=== PATIENT | male | born 1990 | race Caucasian/White ===

== ENCOUNTER 2020-08-01 08:21 | Inpatient (IN) | payer OTHER ==
[2020-08-01] MEDS ORDERED: MAGNESIUM CITRATE 300 ML BOTTLE PO PRN (09:58)
[2020-08-01] MEDS ORDERED: LORazepam 1 MG TABLET PO PRN (09:58)
[2020-08-01] MEDS ORDERED: ACETAMINOPHEN 325 MG TABLET (FP) PO PRN (09:58)
[2020-08-01] MEDS ORDERED: METHOCARBAMOL 500 MG TABLET PO PRN (09:58)
[2020-08-01] MEDS ORDERED: methaDONE HCL 10 MG TABLET (FOR DETOX USE ONLY) PO ONE (09:58)
[2020-08-01] MEDS ORDERED: ONDANSETRON *ODT* 4 MG TABLET SL PRN (09:58)
[2020-08-01] MEDS ORDERED: BISMUTH SUBSALICYLATE 262 MG/15 ML BTL PO PRN (09:58)
[2020-08-01] MEDS ORDERED: MENTHOL/PHENOL 1 EACH UD MM PRN (09:58)
[2020-08-01 09:59] VITALS: BMI 17.3
[2020-08-01] MEDS: LORazepam 2 MG TABLET PO SCH ×3 (10:56→22:27)
[2020-08-01] MEDS: NICOTINE 14 MG/24 HOURS TOPICAL PATCH TD SCH (10:58)
[2020-08-01] MEDS: PRENATAL VITAMINS W/ FOLIC ACID TABLET (FP) PO SCH (11:05)
[2020-08-01] MEDS: hydrOXYzine PAMOATE 25 MG CAPSULE (FP) PO SCH ×4 (11:05→22:28)
[2020-08-01] MEDS: MAGNESIUM HYDROX 2400MG/30ML ORAL SUSPENSION 30 ML CUP PO PRN (13:06)
[2020-08-01] MEDS: cloNIDine HCL 0.1 MG TABLET PO PRN (13:06)
[2020-08-01 16:09] LABS: HEMATOCRIT 41.2 % (35.4-49); HEMOGLOBIN 13.6 GM/dL (11.7-16.9); MCH 27.2 pg (25.7-33.7); MEAN CELL VOLUME 82.6 fl (80-96); MEAN PLT VOLUME 7.1 fl (7.5-11.1); PLATELET COUNT 317 K/MM3 (134-434); RBC 4.98 M/mm3 (4.00-5.60); RDW 14.4 % (11.9-15.9); WHITE BLOOD COUNT 4.6 K/mm3 (4.0-10.0)
[2020-08-01 16:19] LABS: CALCIUM 9.2 mg/dL (8.5-10.1)
[2020-08-01 16:20] LABS: ALBUMIN 4.1 g/dl (3.4-5.0)
[2020-08-01 16:23] LABS: CREATININE 0.9 mg/dL (0.55-1.3)
[2020-08-01 16:24] LABS: TOT PROT 7.6 g/dl (6.4-8.2)
[2020-08-01] MEDS: IBUPROFEN 400 MG TABLET (FP) PO PRN (17:44)
[2020-08-01] MEDS: QUEtiapine FUMARATE 100 MG TABLET (FP) PO SCH (22:27)
[2020-08-01] MEDS: THIAMINE HCL 100 MG TABLET (FP) PO SCH (22:27)
[2020-08-01] MEDS: MELATONIN 5 MG TABLETS PO SCH (22:39)
[2020-08-02] MEDS: LORazepam 2 MG TABLET PO SCH ×4 (05:15→22:06)
[2020-08-02] MEDS: hydrOXYzine PAMOATE 25 MG CAPSULE (FP) PO SCH ×5 (05:15→22:10)
[2020-08-02] MEDS: IBUPROFEN 400 MG TABLET (FP) PO PRN ×2 (05:16→22:09)
[2020-08-02] MEDS ORDERED: methaDONE HCL 10 MG TABLET (FOR DETOX USE ONLY) ONE (09:20)
[2020-08-02] MEDS: PRENATAL VITAMINS W/ FOLIC ACID TABLET (FP) PO SCH (10:23)
[2020-08-02] MEDS: NICOTINE POLACRILEX 2 MG GUM BUC PRN ×3 (10:25→17:22)
[2020-08-02] MEDS: NICOTINE 14 MG/24 HOURS TOPICAL PATCH TD SCH (10:25)
[2020-08-02] MEDS: cloNIDine HCL 0.1 MG TABLET PO PRN ×2 (12:56→22:10)
[2020-08-02] MEDS: MAGNESIUM HYDROX 2400MG/30ML ORAL SUSPENSION 30 ML CUP PO PRN (13:57)
[2020-08-02] MEDS: MAG HYDROX/AL HYDROX/SIMETH 30 ML UNIT-DOSE CUP PO PRN (13:57)
[2020-08-02] MEDS: THIAMINE HCL 100 MG TABLET (FP) PO SCH (22:05)
[2020-08-02] MEDS: QUEtiapine FUMARATE 100 MG TABLET (FP) PO SCH (22:05)
[2020-08-02] MEDS: MELATONIN 5 MG TABLETS PO SCH (22:05)
[2020-08-03] MEDS: hydrOXYzine PAMOATE 25 MG CAPSULE (FP) PO SCH ×5 (05:17→22:26)
[2020-08-03] MEDS: LORazepam 1 MG TABLET PO SCH ×4 (05:17→22:01)
[2020-08-03] MEDS ORDERED: methaDONE HCL 10 MG TABLET (FOR DETOX USE ONLY) PO ONE (10:00)
[2020-08-03] MEDS: PRENATAL VITAMINS W/ FOLIC ACID TABLET (FP) PO SCH (10:04)
[2020-08-03] MEDS: ACETAMINOPHEN 325 MG TABLET (FP) PO PRN (10:07)
[2020-08-03] MEDS: NICOTINE 14 MG/24 HOURS TOPICAL PATCH TD SCH (10:09)
[2020-08-03] MEDS: NICOTINE POLACRILEX 2 MG GUM BUC PRN ×4 (10:09→20:04)
[2020-08-03] MEDS: IBUPROFEN 400 MG TABLET (FP) PO PRN ×2 (12:23→22:01)
[2020-08-03] MEDS: cloNIDine HCL 0.1 MG TABLET PO PRN ×2 (12:24→22:04)
[2020-08-03] MEDS: THIAMINE HCL 100 MG TABLET (FP) PO SCH (22:01)
[2020-08-03] MEDS: QUEtiapine FUMARATE 100 MG TABLET (FP) PO SCH (22:02)
[2020-08-03] MEDS: MELATONIN 5 MG TABLETS PO SCH (22:02)
[2020-08-04] MEDS ORDERED: LORazepam 0.5 MG TABLET PO PRN
[2020-08-04] MEDS: hydrOXYzine PAMOATE 25 MG CAPSULE (FP) PO SCH ×5 (05:27→22:00)
[2020-08-04] MEDS: LORazepam 0.5 MG TABLET PO SCH ×4 (05:27→21:59)
[2020-08-04] MEDS: NICOTINE POLACRILEX 2 MG GUM BUC PRN ×4 (05:29→17:31)
[2020-08-04] MEDS ORDERED: methaDONE HCL 10 MG TABLET (FOR DETOX USE ONLY) ONE (09:19)
[2020-08-04] MEDS: NICOTINE 14 MG/24 HOURS TOPICAL PATCH TD SCH (10:08)
[2020-08-04] MEDS: PRENATAL VITAMINS W/ FOLIC ACID TABLET (FP) PO SCH (10:08)
[2020-08-04] MEDS: ACETAMINOPHEN 325 MG TABLET (FP) PO PRN ×2 (11:40→22:01)
[2020-08-04] MEDS: IBUPROFEN 400 MG TABLET (FP) PO PRN (17:28)
[2020-08-04] MEDS: MAG HYDROX/AL HYDROX/SIMETH 30 ML UNIT-DOSE CUP PO PRN (17:49)
[2020-08-04] MEDS: THIAMINE HCL 100 MG TABLET (FP) PO SCH (21:59)
[2020-08-04] MEDS: QUEtiapine FUMARATE 100 MG TABLET (FP) PO SCH (22:01)
[2020-08-04] MEDS: MELATONIN 5 MG TABLETS PO SCH (22:04)
[2020-08-05] MEDS ORDERED: LORazepam 0.5 MG TABLET PO ONE (05:00)
[2020-08-05] MEDS: hydrOXYzine PAMOATE 25 MG CAPSULE (FP) PO SCH (05:15)
[2020-08-05 05:59] VITALS: BP 118/72; PULSE 72; TEMP 97.3
[2020-08-05] MEDS ORDERED: methaDONE HCL 10 MG TABLET (FOR DETOX USE ONLY) PO ONE (10:00)
== END 2020-08-05 09:08 | disposition home or self-care (01) | DRG 773 ==
LOC: YASAS 08:21 → Y6N 09:14
PROVIDERS: ADMIT Allergy & Immunology; ATTEND Allergy & Immunology
PROC: HZ2ZZZZ Detoxification Services for Substance Abuse Treatment (ICD-10-PCS; principal; 2020-08-01)
DX: F11.23 Opioid dependence with withdrawal (principal); F10.230 Alcohol dependence with withdrawal, uncomplicated; F13.20 Sedative, hypnotic or anxiolytic dependence, uncomplicated; F17.210 Nicotine dependence, cigarettes, uncomplicated; F14.10 Cocaine abuse, uncomplicated; F19.280 Other psychoactive substance dependence with psychoactive substance-induced anxiety disorder; F19.282 Other psychoactive substance dependence with psychoactive substance-induced sleep disorder; F32.9 Major depressive disorder, single episode, unspecified; F41.1 Generalized anxiety disorder; G40.89 Other seizures; Z62.810 Personal history of physical and sexual abuse in childhood
CPT/HCPCS: 36415; 71046-TC-FY; 80053; 82550; 83690; 84484; 85025; 85027; 86780; 93005; 93010; C9803; J0735; Q0162; U0003

== ENCOUNTER 2020-09-12 08:08 | Inpatient (IN) | payer OTHER ==
[2020-09-12 09:24] VITALS: BMI 25.8
[2020-09-12] MEDS ORDERED: ACETAMINOPHEN 325 MG TABLET (FP) PO PRN (09:43)
[2020-09-12] MEDS ORDERED: MAGNESIUM HYDROX 2400MG/30ML ORAL SUSPENSION 30 ML CUP PO PRN (09:43)
[2020-09-12] MEDS ORDERED: chlordiazePOXIDE HCL 25 MG CAPSULE PO PRN (09:43)
[2020-09-12] MEDS ORDERED: MAG HYDROX/AL HYDROX/SIMETH 30 ML UNIT-DOSE CUP PO PRN (09:43)
[2020-09-12] MEDS ORDERED: MAGNESIUM CITRATE 300 ML BOTTLE PO PRN (09:43)
[2020-09-12] MEDS ORDERED: cloNIDine HCL 0.1 MG TABLET PO PRN (09:43)
[2020-09-12] MEDS ORDERED: ONDANSETRON *ODT* 4 MG TABLET SL PRN (09:43)
[2020-09-12] MEDS ORDERED: MENTHOL/PHENOL 1 EACH UD MM PRN (09:43)
[2020-09-12] MEDS ORDERED: METHADONE HCL 10 MG TABLET (FOR DETOX USE ONLY) PO ONE (10:15)
[2020-09-12] MEDS ORDERED: NICOTINE 14 MG/24 HOURS TOPICAL PATCH TD ONE (10:57)
[2020-09-12] MEDS ORDERED: METHADONE HCL 10 MG TABLET (FOR DETOX USE ONLY) ONE (10:57)
[2020-09-12] MEDS ORDERED: chlordiazePOXIDE HCL 25 MG CAPSULE ONE (10:57)
[2020-09-12] MEDS ORDERED: hydrOXYzine PAMOATE 25 MG CAPSULE (FP) PO ONE (10:57)
[2020-09-12] MEDS: NICOTINE 14 MG/24 HOURS TOPICAL PATCH TD SCH (10:58)
[2020-09-12] MEDS: hydrOXYzine PAMOATE 25 MG CAPSULE (FP) PO SCH ×4 (10:58→22:08)
[2020-09-12] MEDS: chlordiazePOXIDE HCL 25 MG CAPSULE PO SCH ×3 (10:59→22:07)
[2020-09-12] MEDS: PRENATAL VITAMINS W/ FOLIC ACID TABLET (FP) PO SCH (12:01)
[2020-09-12 13:57] LABS: POTASSIUM 4.4 mmol/L (3.5-5.1)
[2020-09-12 14:01] LABS: ALBUMIN 3.5 g/dl (3.4-5.0); BLOOD UREA NITROGEN 9.1 mg/dL (7-18); CALCIUM 8.6 mg/dL (8.5-10.1)
[2020-09-12 14:04] LABS: CREATININE 0.8 mg/dL (0.55-1.3); HEMATOCRIT 37.9 % (35.4-49); HEMOGLOBIN 12.9 GM/dL (11.7-16.9); MCH 27.8 pg (25.7-33.7); MCHC 34.2 g/dl (32.0-35.9); MEAN CELL VOLUME 81.4 fl (80-96); PLATELET COUNT 328 K/MM3 (134-434); RBC 4.65 M/mm3 (4.00-5.60); RDW 13.6 % (11.9-15.9); WHITE BLOOD COUNT 3.5 K/mm3 (4.0-10.0)
[2020-09-12 14:06] LABS: BILIRUBIN,TOTAL 0.5 mg/dL (0.2-1); TOT PROT 6.6 g/dl (6.4-8.2)
[2020-09-12] MEDS: BISMUTH SUBSALICYLATE 524 MG/30 ML UD PO PRN (15:35)
[2020-09-12 15:47] LABS: HIV INTERPRETATION NEGATIVE (NEGATIVE)
[2020-09-12] MEDS: THIAMINE HCL 100 MG TABLET (FP) PO SCH (22:08)
[2020-09-12] MEDS: QUEtiapine FUMARATE 100 MG TABLET (FP) PO SCH (22:08)
[2020-09-12] MEDS: MELATONIN 5 MG TABLETS PO SCH (22:08)
[2020-09-12] MEDS: busPIRone HCL 5 MG TABLET PO SCH (22:09)
[2020-09-13] MEDS: chlordiazePOXIDE HCL 25 MG CAPSULE PO SCH ×4 (05:36→22:08)
[2020-09-13] MEDS: hydrOXYzine PAMOATE 25 MG CAPSULE (FP) PO SCH ×5 (05:37→22:07)
[2020-09-13] MEDS ORDERED: METHADONE HCL 10 MG TABLET (FOR DETOX USE ONLY) ONE (09:27)
[2020-09-13] MEDS ORDERED: METHADONE HCL 5 MG TABLET (FOR DETOX USE ONLY) ONE (09:28)
[2020-09-13] MEDS ORDERED: METHADONE (DETOX) 20 MG, METHADONE (DETOX) 5 MG PO ONE (10:00)
[2020-09-13] MEDS: busPIRone HCL 5 MG TABLET PO SCH ×2 (10:13→22:07)
[2020-09-13] MEDS: NICOTINE 14 MG/24 HOURS TOPICAL PATCH TD SCH (10:13)
[2020-09-13] MEDS: PRENATAL VITAMINS W/ FOLIC ACID TABLET (FP) PO SCH (10:14)
[2020-09-13] MEDS: IBUPROFEN 400 MG TABLET (FP) PO PRN ×2 (10:18→22:10)
[2020-09-13] MEDS: ACETAMINOPHEN 325 MG TABLET (FP) PO PRN (17:29)
[2020-09-13] MEDS: NICOTINE POLACRILEX 2 MG GUM BUC PRN ×2 (17:30→22:11)
[2020-09-13] MEDS: QUEtiapine FUMARATE 100 MG TABLET (FP) PO SCH (22:07)
[2020-09-13] MEDS: MELATONIN 5 MG TABLETS PO SCH (22:07)
[2020-09-13] MEDS: THIAMINE HCL 100 MG TABLET (FP) PO SCH (22:07)
[2020-09-13] MEDS: BISMUTH SUBSALICYLATE 524 MG/30 ML UD PO PRN (22:11)
[2020-09-14] MEDS: chlordiazePOXIDE HCL 25 MG CAPSULE PO SCH ×4 (05:33→22:02)
[2020-09-14] MEDS: ACETAMINOPHEN 325 MG TABLET (FP) PO PRN (05:34)
[2020-09-14] MEDS: hydrOXYzine PAMOATE 25 MG CAPSULE (FP) PO SCH ×5 (05:34→22:02)
[2020-09-14] MEDS: NICOTINE POLACRILEX 2 MG GUM BUC PRN ×4 (05:36→22:05)
[2020-09-14] MEDS ORDERED: FLU VACCINE (FLULAVAL) PF 60 MCG/0.5 ML SYRINGE 2020-2021 IM ONE (09:20)
[2020-09-14] MEDS ORDERED: METHADONE HCL 10 MG TABLET (FOR DETOX USE ONLY) PO ONE (10:00)
[2020-09-14] MEDS: busPIRone HCL 5 MG TABLET PO SCH ×2 (10:00→22:02)
[2020-09-14] MEDS: NICOTINE 14 MG/24 HOURS TOPICAL PATCH TD SCH (10:01)
[2020-09-14] MEDS: PRENATAL VITAMINS W/ FOLIC ACID TABLET (FP) PO SCH (10:01)
[2020-09-14] MEDS: METHOCARBAMOL 500 MG TABLET PO PRN ×2 (10:05→22:03)
[2020-09-14] MEDS: IBUPROFEN 400 MG TABLET (FP) PO PRN ×2 (10:05→18:26)
[2020-09-14] MEDS: BISMUTH SUBSALICYLATE 524 MG/30 ML UD PO PRN (18:14)
[2020-09-14] MEDS: THIAMINE HCL 100 MG TABLET (FP) PO SCH (22:02)
[2020-09-14] MEDS: QUEtiapine FUMARATE 100 MG TABLET (FP) PO SCH (22:02)
[2020-09-14] MEDS: MELATONIN 5 MG TABLETS PO SCH (22:02)
[2020-09-15] MEDS ORDERED: chlordiazePOXIDE HCL 10 MG CAPSULE PO PRN
[2020-09-15] MEDS: chlordiazePOXIDE HCL 10 MG CAPSULE PO SCH ×4 (05:47→22:03)
[2020-09-15] MEDS: hydrOXYzine PAMOATE 25 MG CAPSULE (FP) PO SCH ×3 (05:48→13:10)
[2020-09-15] MEDS: IBUPROFEN 400 MG TABLET (FP) PO PRN ×2 (05:48→22:05)
[2020-09-15] MEDS: NICOTINE POLACRILEX 2 MG GUM BUC PRN ×5 (05:51→19:31)
[2020-09-15] MEDS: BISMUTH SUBSALICYLATE 524 MG/30 ML UD PO PRN ×2 (06:02→20:36)
[2020-09-15] MEDS ORDERED: METHADONE HCL 10 MG TABLET (FOR DETOX USE ONLY) ONE (09:36)
[2020-09-15] MEDS ORDERED: METHADONE HCL 5 MG TABLET (FOR DETOX USE ONLY) ONE (09:36)
[2020-09-15] MEDS ORDERED: METHADONE (DETOX) 10 MG, METHADONE (DETOX) 5 MG PO ONE (10:00)
[2020-09-15] MEDS: busPIRone HCL 5 MG TABLET PO SCH ×2 (10:26→22:03)
[2020-09-15] MEDS: PRENATAL VITAMINS W/ FOLIC ACID TABLET (FP) PO SCH (10:26)
[2020-09-15] MEDS: ACETAMINOPHEN 325 MG TABLET (FP) PO PRN (10:27)
[2020-09-15] MEDS: METHOCARBAMOL 500 MG TABLET PO PRN (10:27)
[2020-09-15] MEDS: NICOTINE 14 MG/24 HOURS TOPICAL PATCH TD SCH (10:31)
[2020-09-15] MEDS ORDERED: hydrOXYzine PAMOATE 25 MG CAPSULE (FP) PO PRN (14:48)
[2020-09-15] MEDS: QUEtiapine FUMARATE 100 MG TABLET (FP) PO SCH (22:03)
[2020-09-15] MEDS: THIAMINE HCL 100 MG TABLET (FP) PO SCH (22:03)
[2020-09-15] MEDS: MELATONIN 5 MG TABLETS PO SCH (22:03)
[2020-09-16] MEDS ORDERED: chlordiazePOXIDE HCL 10 MG CAPSULE PO SCH (05:00)
[2020-09-16] MEDS ORDERED: METHADONE HCL 10 MG TABLET (FOR DETOX USE ONLY) PO ONE ×2 (06:00→10:00)
[2020-09-16 07:20] VITALS: BP 116/74; PULSE 74; TEMP 97.1
[2020-09-16] MEDS: PRENATAL VITAMINS W/ FOLIC ACID TABLET (FP) PO SCH (09:22)
[2020-09-16] MEDS: NICOTINE 14 MG/24 HOURS TOPICAL PATCH TD SCH (09:22)
[2020-09-16] MEDS: busPIRone HCL 5 MG TABLET PO SCH (09:22)
[2020-09-17] MEDS ORDERED: chlordiazePOXIDE HCL 10 MG CAPSULE PO ONE (05:00)
[2020-09-17] MEDS ORDERED: METHADONE HCL 5 MG TABLET (FOR DETOX USE ONLY) PO ONE (06:00)
== END 2020-09-16 08:27 | disposition home or self-care (01) | DRG 773 ==
LOC: YASAS 08:08 → Y3N 11:16
PROVIDERS: ADMIT Allergy & Immunology; ATTEND Allergy & Immunology
PROC: HZ2ZZZZ Detoxification Services for Substance Abuse Treatment (ICD-10-PCS; principal; 2020-09-12)
DX: F11.23 Opioid dependence with withdrawal (principal); F10.230 Alcohol dependence with withdrawal, uncomplicated; F13.20 Sedative, hypnotic or anxiolytic dependence, uncomplicated; F14.10 Cocaine abuse, uncomplicated; F17.210 Nicotine dependence, cigarettes, uncomplicated; F19.282 Other psychoactive substance dependence with psychoactive substance-induced sleep disorder; F19.280 Other psychoactive substance dependence with psychoactive substance-induced anxiety disorder; F41.1 Generalized anxiety disorder; F32.9 Major depressive disorder, single episode, unspecified; R56.9 Unspecified convulsions; Z62.810 Personal history of physical and sexual abuse in childhood; Z86.69 Personal history of other diseases of the nervous system and sense organs
CPT/HCPCS: 36415; 80053; 85027; 86780; 87389; C9803; G0008; J0735; Q2036; U0003

== ENCOUNTER 2020-12-31 09:08 | Inpatient (IN) | payer OTHER ==
[2020-12-31] MEDS ORDERED: MENTHOL/PHENOL 1 EACH UD MM PRN (09:53)
[2020-12-31] MEDS ORDERED: ACETAMINOPHEN 325 MG TABLET (FP) PO PRN ×2 (09:53)
[2020-12-31] MEDS ORDERED: cloNIDine HCL 0.1 MG TABLET PO PRN (09:53)
[2020-12-31] MEDS ORDERED: ONDANSETRON *ODT* 4 MG TABLET SL PRN (09:53)
[2020-12-31] MEDS ORDERED: MAGNESIUM CITRATE 300 ML BOTTLE PO PRN (09:53)
[2020-12-31] MEDS ORDERED: MAGNESIUM HYDROX 2400MG/30ML ORAL SUSPENSION 30 ML CUP PO PRN (09:53)
[2020-12-31 09:57] VITALS: BMI 25.2
[2020-12-31] MEDS ORDERED: METHADONE HCL 10 MG TABLET (FOR DETOX USE ONLY) PO ONE (10:30)
[2020-12-31] MEDS: diazePAM 5 MG TABLET PO SCH ×3 (11:47→22:10)
[2020-12-31] MEDS: METHOCARBAMOL 500 MG TABLET PO PRN (11:47)
[2020-12-31] MEDS: PRENATAL VITAMINS W/ FOLIC ACID TABLET (FP) PO SCH (11:49)
[2020-12-31] MEDS: NICOTINE 21 MG/24 HOURS TOPICAL PATCH TD SCH (11:49)
[2020-12-31] MEDS: hydrOXYzine PAMOATE 25 MG CAPSULE (FP) PO SCH ×4 (11:49→22:13)
[2020-12-31] MEDS: NICOTINE POLACRILEX 2 MG GUM BUC PRN ×2 (13:47→22:14)
[2020-12-31] MEDS: MAG HYDROX/AL HYDROX/SIMETH 30 ML UNIT-DOSE CUP PO PRN ×2 (13:48→22:08)
[2020-12-31] MEDS: GABAPENTIN 300 MG CAPSULE PO SCH ×2 (14:43→22:09)
[2020-12-31 14:53] LABS: HEMATOCRIT 42.3 % (35.4-49); HEMOGLOBIN 14.6 GM/dL (11.7-16.9); MCH 28.6 pg (25.7-33.7); MCHC 34.6 g/dl (32.0-35.9); MEAN CELL VOLUME 82.6 fl (80-96); MEAN PLT VOLUME 7.4 fl (7.5-11.1); PLATELET COUNT 363 K/MM3 (134-434); RBC 5.12 M/mm3 (4.00-5.60); RDW 14.5 % (11.9-15.9); WHITE BLOOD COUNT 9.1 K/mm3 (4.0-10.0)
[2020-12-31 16:00] LABS: BLOOD UREA NITROGEN 13.6 mg/dL (7-18)
[2020-12-31 16:01] LABS: ALBUMIN 4.6 g/dl (3.4-5.0); HIV INTERPRETATION NEGATIVE (NEGATIVE)
[2020-12-31 16:03] LABS: CALCIUM 9.6 mg/dL (8.5-10.1)
[2020-12-31 16:04] LABS: CREATININE 0.9 mg/dL (0.55-1.3)
[2020-12-31 16:05] LABS: BILIRUBIN,TOTAL 0.8 mg/dL (0.2-1); TOT PROT 8.1 g/dl (6.4-8.2)
[2020-12-31] MEDS: NYSTATIN 500,000 UNITS/5 ML SUSPENSION PO SCH ×2 (19:35→23:00)
[2020-12-31] MEDS: QUEtiapine FUMARATE 100 MG TABLET (FP) PO SCH (22:09)
[2020-12-31] MEDS: THIAMINE HCL 100 MG TABLET (FP) PO SCH (22:09)
[2020-12-31] MEDS: MELATONIN 5 MG TABLETS PO SCH (22:13)
[2020-12-31] MEDS: HYDROCORTISONE 1% TOPICAL OINT 30 GM TUBE TP PRN (22:14)
[2020-12-31] MEDS: IBUPROFEN 400 MG TABLET (FP) PO PRN (22:16)
[2021-01-01] MEDS: hydrOXYzine PAMOATE 25 MG CAPSULE (FP) PO SCH ×5 (05:08→22:04)
[2021-01-01] MEDS: GABAPENTIN 300 MG CAPSULE PO SCH ×3 (05:08→22:06)
[2021-01-01] MEDS: NYSTATIN 500,000 UNITS/5 ML SUSPENSION PO SCH ×4 (05:08→23:00)
[2021-01-01] MEDS: diazePAM 5 MG TABLET PO SCH ×4 (05:09→22:06)
[2021-01-01] MEDS: IBUPROFEN 400 MG TABLET (FP) PO PRN (05:10)
[2021-01-01] MEDS: NICOTINE POLACRILEX 2 MG GUM BUC PRN ×4 (05:11→17:19)
[2021-01-01] MEDS ORDERED: METHADONE HCL 5 MG TABLET (FOR DETOX USE ONLY) ONE (09:29)
[2021-01-01] MEDS ORDERED: METHADONE HCL 10 MG TABLET (FOR DETOX USE ONLY) ONE (09:30)
[2021-01-01] MEDS ORDERED: METHADONE (DETOX) 20 MG, METHADONE (DETOX) 5 MG PO ONE (10:00)
[2021-01-01] MEDS: PRENATAL VITAMINS W/ FOLIC ACID TABLET (FP) PO SCH (10:08)
[2021-01-01] MEDS: NICOTINE 21 MG/24 HOURS TOPICAL PATCH TD SCH (10:08)
[2021-01-01] MEDS: HYDROCORTISONE 1% TOPICAL OINT 30 GM TUBE TP PRN (14:23)
[2021-01-01] MEDS: QUEtiapine FUMARATE 100 MG TABLET (FP) PO SCH (22:04)
[2021-01-01] MEDS: THIAMINE HCL 100 MG TABLET (FP) PO SCH (22:04)
[2021-01-01] MEDS: MELATONIN 5 MG TABLETS PO SCH (22:07)
[2021-01-02] MEDS: IBUPROFEN 400 MG TABLET (FP) PO PRN ×2 (05:14→22:07)
[2021-01-02] MEDS: NYSTATIN 500,000 UNITS/5 ML SUSPENSION PO SCH ×4 (05:15→23:00)
[2021-01-02] MEDS: GABAPENTIN 300 MG CAPSULE PO SCH ×3 (05:16→22:03)
[2021-01-02] MEDS: diazePAM 5 MG TABLET PO SCH ×3 (05:16→22:03)
[2021-01-02] MEDS: hydrOXYzine PAMOATE 25 MG CAPSULE (FP) PO SCH ×5 (05:16→22:07)
[2021-01-02] MEDS ORDERED: METHADONE HCL 10 MG TABLET (FOR DETOX USE ONLY) PO ONE (10:00)
[2021-01-02] MEDS: PRENATAL VITAMINS W/ FOLIC ACID TABLET (FP) PO SCH (10:05)
[2021-01-02] MEDS: NICOTINE 21 MG/24 HOURS TOPICAL PATCH TD SCH (10:07)
[2021-01-02] MEDS: METHOCARBAMOL 500 MG TABLET PO PRN (10:10)
[2021-01-02] MEDS: diazePAM 5 MG TABLET PO PRN ×2 (10:10→17:57)
[2021-01-02] MEDS: NICOTINE POLACRILEX 2 MG GUM BUC PRN ×3 (10:13→22:05)
[2021-01-02] MEDS: HYDROCORTISONE 1% TOPICAL OINT 30 GM TUBE TP PRN (22:02)
[2021-01-02] MEDS: QUEtiapine FUMARATE 100 MG TABLET (FP) PO SCH (22:03)
[2021-01-02] MEDS: THIAMINE HCL 100 MG TABLET (FP) PO SCH (22:03)
[2021-01-02] MEDS: MELATONIN 5 MG TABLETS PO SCH (22:08)
[2021-01-03] MEDS: diazePAM 5 MG TABLET PO SCH ×2 (05:26→17:38)
[2021-01-03] MEDS: GABAPENTIN 300 MG CAPSULE PO SCH ×3 (05:27→22:05)
[2021-01-03] MEDS: hydrOXYzine PAMOATE 25 MG CAPSULE (FP) PO SCH ×5 (05:27→22:05)
[2021-01-03] MEDS: IBUPROFEN 400 MG TABLET (FP) PO PRN (05:28)
[2021-01-03] MEDS: NYSTATIN 500,000 UNITS/5 ML SUSPENSION PO SCH ×4 (05:37→23:03)
[2021-01-03] MEDS: BISMUTH SUBSALICYLATE 524 MG/30 ML PO PRN ×2 (05:37→22:08)
[2021-01-03] MEDS: NICOTINE POLACRILEX 2 MG GUM BUC PRN ×3 (05:39→22:08)
[2021-01-03] MEDS ORDERED: METHADONE HCL 5 MG TABLET (FOR DETOX USE ONLY) ONE (08:55)
[2021-01-03] MEDS ORDERED: METHADONE HCL 10 MG TABLET (FOR DETOX USE ONLY) ONE (08:56)
[2021-01-03] MEDS ORDERED: METHADONE (DETOX) 10 MG, METHADONE (DETOX) 5 MG PO ONE (10:00)
[2021-01-03] MEDS: PRENATAL VITAMINS W/ FOLIC ACID TABLET (FP) PO SCH (10:07)
[2021-01-03] MEDS: NICOTINE 21 MG/24 HOURS TOPICAL PATCH TD SCH (10:08)
[2021-01-03] MEDS: QUEtiapine FUMARATE 100 MG TABLET (FP) PO SCH (22:05)
[2021-01-03] MEDS: THIAMINE HCL 100 MG TABLET (FP) PO SCH (22:05)
[2021-01-03] MEDS: MELATONIN 5 MG TABLETS PO SCH (22:05)
[2021-01-04] MEDS: IBUPROFEN 600 MG TABLET (FP) PO PRN ×2 (04:57→17:30)
[2021-01-04] MEDS: NYSTATIN 500,000 UNITS/5 ML SUSPENSION PO SCH ×3 (05:35→18:19)
[2021-01-04] MEDS: GABAPENTIN 300 MG CAPSULE PO SCH ×3 (05:35→22:06)
[2021-01-04] MEDS: hydrOXYzine PAMOATE 25 MG CAPSULE (FP) PO SCH ×5 (05:36→22:06)
[2021-01-04] MEDS ORDERED: diazePAM 5 MG TABLET PO ONE (06:00)
[2021-01-04] MEDS ORDERED: METHADONE HCL 10 MG TABLET (FOR DETOX USE ONLY) PO ONE ×2 (10:00)
[2021-01-04] MEDS: PRENATAL VITAMINS W/ FOLIC ACID TABLET (FP) PO SCH (10:03)
[2021-01-04] MEDS: NICOTINE 21 MG/24 HOURS TOPICAL PATCH TD SCH (10:04)
[2021-01-04] MEDS: NICOTINE POLACRILEX 2 MG GUM BUC PRN ×2 (10:05→17:32)
[2021-01-04] MEDS: BISMUTH SUBSALICYLATE 524 MG/30 ML PO PRN (17:32)
[2021-01-04] MEDS: QUEtiapine FUMARATE 100 MG TABLET (FP) PO SCH (22:05)
[2021-01-04] MEDS: THIAMINE HCL 100 MG TABLET (FP) PO SCH (22:05)
[2021-01-04] MEDS: MELATONIN 5 MG TABLETS PO SCH (22:06)
[2021-01-05] MEDS: NYSTATIN 500,000 UNITS/5 ML SUSPENSION PO SCH ×4 (00:33→17:30)
[2021-01-05] MEDS: GABAPENTIN 300 MG CAPSULE PO SCH ×2 (05:13→13:51)
[2021-01-05] MEDS: hydrOXYzine PAMOATE 25 MG CAPSULE (FP) PO SCH ×4 (05:13→17:29)
[2021-01-05] MEDS: IBUPROFEN 600 MG TABLET (FP) PO PRN (05:15)
[2021-01-05] MEDS: NICOTINE POLACRILEX 2 MG GUM BUC PRN ×4 (05:26→17:27)
[2021-01-05] MEDS ORDERED: METHADONE HCL 5 MG TABLET (FOR DETOX USE ONLY) PO ONE (06:00)
[2021-01-05] MEDS: PRENATAL VITAMINS W/ FOLIC ACID TABLET (FP) PO SCH (10:07)
[2021-01-05] MEDS: NICOTINE 21 MG/24 HOURS TOPICAL PATCH TD SCH (10:07)
[2021-01-05] MEDS: METHOCARBAMOL 500 MG TABLET PO PRN (13:53)
[2021-01-05] MEDS: MAG HYDROX/AL HYDROX/SIMETH 30 ML UNIT-DOSE CUP PO PRN (13:53)
[2021-01-05 17:05] VITALS: BP 138/84; PULSE 95; TEMP 98
== END 2021-01-05 17:57 | disposition other institution (70) | DRG 773 ==
LOC: YASAS 09:08 → Y6N 10:32
PROVIDERS: ADMIT Allergy & Immunology; ATTEND Allergy & Immunology
PROC: HZ2ZZZZ Detoxification Services for Substance Abuse Treatment (ICD-10-PCS; principal; 2020-12-31)
DX: F10.230 Alcohol dependence with withdrawal, uncomplicated (principal); F11.23 Opioid dependence with withdrawal; F13.20 Sedative, hypnotic or anxiolytic dependence, uncomplicated; F14.20 Cocaine dependence, uncomplicated; F17.210 Nicotine dependence, cigarettes, uncomplicated; F19.282 Other psychoactive substance dependence with psychoactive substance-induced sleep disorder; F19.280 Other psychoactive substance dependence with psychoactive substance-induced anxiety disorder; F19.24 Other psychoactive substance dependence with psychoactive substance-induced mood disorder; F32.9 Major depressive disorder, single episode, unspecified; G40.89 Other seizures; B37.0 Candidal stomatitis; Z62.810 Personal history of physical and sexual abuse in childhood; R63.4 Abnormal weight loss; Z68.25 Body mass index [BMI] 25.0-25.9, adult; Z86.16 Personal history of COVID-19; Z98.890 Other specified postprocedural states
CPT/HCPCS: 36415; 80053; 85027; 86780; 87389; 93005; 93010; C9803; J0735; U0003; U0005

== ENCOUNTER 2021-01-05 18:30 | Inpatient (IN) | payer OTHER ==
[2021-01-05] MEDS ORDERED: guaiFENesin 200 MG/10 ML 10 ML UNIT-DOSE CUPS PO PRN (18:38)
[2021-01-05] MEDS ORDERED: MAGNESIUM CITRATE 300 ML BOTTLE PO PRN (18:38)
[2021-01-05] MEDS ORDERED: MENTHOL/PHENOL 1 EACH UD MM PRN (18:38)
[2021-01-05] MEDS ORDERED: MAGNESIUM HYDROX 2400MG/30ML ORAL SUSPENSION 30 ML CUP PO PRN (18:38)
[2021-01-05] MEDS ORDERED: P-EPHED 60MG/TRIPROLIDI 2.5MG TABLET PO PRN (18:38)
[2021-01-05] MEDS: MELATONIN 5 MG TABLETS PO SCH (21:10)
[2021-01-05] MEDS: GABAPENTIN 300 MG CAPSULE PO SCH (21:10)
[2021-01-05] MEDS: QUEtiapine FUMARATE 100 MG TABLET (FP) PO SCH (21:10)
[2021-01-05] MEDS: THIAMINE HCL 100 MG TABLET (FP) PO SCH (21:10)
[2021-01-05] MEDS: hydrOXYzine PAMOATE 25 MG CAPSULE (FP) PO SCH (21:10)
[2021-01-05] MEDS: IBUPROFEN 400 MG TABLET (FP) PO PRN (21:12)
[2021-01-05] MEDS: NICOTINE POLACRILEX 2 MG GUM BUC PRN (21:13)
[2021-01-05] MEDS: NYSTATIN 500,000 UNITS/5 ML SUSPENSION PO SCH (23:48)
[2021-01-06] MEDS: IBUPROFEN 400 MG TABLET (FP) PO PRN ×2 (06:23→17:19)
[2021-01-06] MEDS: GABAPENTIN 300 MG CAPSULE PO SCH (06:23)
[2021-01-06] MEDS: MAG HYDROX/AL HYDROX/SIMETH 30 ML UNIT-DOSE CUP PO PRN (06:23)
[2021-01-06] MEDS: hydrOXYzine PAMOATE 25 MG CAPSULE (FP) PO SCH ×2 (06:23→09:41)
[2021-01-06] MEDS: NYSTATIN 500,000 UNITS/5 ML SUSPENSION PO SCH ×3 (06:24→17:26)
[2021-01-06] MEDS: NICOTINE POLACRILEX 2 MG GUM BUC PRN ×5 (06:25→21:13)
[2021-01-06] MEDS: PRENATAL VITAMINS W/ FOLIC ACID TABLET (FP) PO SCH (09:40)
[2021-01-06] MEDS: NICOTINE 21 MG/24 HOURS TOPICAL PATCH TD SCH (09:42)
[2021-01-06] MEDS: PANTOPRAZOLE 40 MG TABLET PO SCH (14:02)
[2021-01-06] MEDS: GABAPENTIN 400 MG CAPSULE PO SCH ×2 (14:21→21:12)
[2021-01-06] MEDS: hydrOXYzine PAMOATE 50 MG CAPSULE (FP) PO SCH ×3 (14:22→21:12)
[2021-01-06] MEDS: MELATONIN 5 MG TABLETS PO SCH (21:12)
[2021-01-06] MEDS: THIAMINE HCL 100 MG TABLET (FP) PO SCH (21:12)
[2021-01-06] MEDS: QUEtiapine FUMARATE 100 MG TABLET (FP) PO SCH (21:12)
[2021-01-07] MEDS: NYSTATIN 500,000 UNITS/5 ML SUSPENSION PO SCH ×5 (00:17→23:00)
[2021-01-07] MEDS: hydrOXYzine PAMOATE 50 MG CAPSULE (FP) PO SCH ×5 (06:26→21:13)
[2021-01-07] MEDS: GABAPENTIN 400 MG CAPSULE PO SCH ×3 (06:26→21:14)
[2021-01-07] MEDS: IBUPROFEN 400 MG TABLET (FP) PO PRN ×2 (06:27→21:17)
[2021-01-07] MEDS: NICOTINE POLACRILEX 2 MG GUM BUC PRN ×5 (06:28→21:18)
[2021-01-07] MEDS: NICOTINE 21 MG/24 HOURS TOPICAL PATCH TD SCH (09:46)
[2021-01-07] MEDS: PRENATAL VITAMINS W/ FOLIC ACID TABLET (FP) PO SCH (09:46)
[2021-01-07] MEDS: PANTOPRAZOLE 40 MG TABLET PO SCH (09:46)
[2021-01-07] MEDS: METHOCARBAMOL 500 MG TABLET PO PRN ×2 (11:07→21:16)
[2021-01-07] MEDS: ACETAMINOPHEN 325 MG TABLET (FP) PO PRN (14:04)
[2021-01-07] MEDS: QUEtiapine FUMARATE 100 MG TABLET (FP) PO SCH (21:13)
[2021-01-07] MEDS: THIAMINE HCL 100 MG TABLET (FP) PO SCH (21:13)
[2021-01-07] MEDS: MELATONIN 5 MG TABLETS PO SCH (21:15)
[2021-01-07] MEDS: LOPERAMIDE HCL 2 MG CAPSULE PO PRN (21:15)
[2021-01-08] MEDS: NYSTATIN 500,000 UNITS/5 ML SUSPENSION PO SCH ×4 (06:33→23:48)
[2021-01-08] MEDS: NICOTINE POLACRILEX 2 MG GUM BUC PRN ×4 (06:35→17:27)
[2021-01-08] MEDS: hydrOXYzine PAMOATE 50 MG CAPSULE (FP) PO SCH ×5 (06:35→21:14)
[2021-01-08] MEDS: METHOCARBAMOL 500 MG TABLET PO PRN ×2 (06:35→17:26)
[2021-01-08] MEDS: GABAPENTIN 400 MG CAPSULE PO SCH ×3 (06:35→21:13)
[2021-01-08] MEDS: PRENATAL VITAMINS W/ FOLIC ACID TABLET (FP) PO SCH (10:05)
[2021-01-08] MEDS: NICOTINE 21 MG/24 HOURS TOPICAL PATCH TD SCH (10:05)
[2021-01-08] MEDS: PANTOPRAZOLE 40 MG TABLET PO SCH (10:06)
[2021-01-08] MEDS: QUEtiapine FUMARATE 100 MG TABLET (FP) PO SCH (21:13)
[2021-01-08] MEDS: THIAMINE HCL 100 MG TABLET (FP) PO SCH (21:13)
[2021-01-08] MEDS: MELATONIN 5 MG TABLETS PO SCH (21:13)
[2021-01-09] MEDS: hydrOXYzine PAMOATE 50 MG CAPSULE (FP) PO SCH ×5 (06:10→21:10)
[2021-01-09] MEDS: METHOCARBAMOL 500 MG TABLET PO PRN ×2 (06:10→18:32)
[2021-01-09] MEDS: GABAPENTIN 400 MG CAPSULE PO SCH ×3 (06:10→21:10)
[2021-01-09] MEDS: NYSTATIN 500,000 UNITS/5 ML SUSPENSION PO SCH ×3 (06:10→18:31)
[2021-01-09] MEDS: NICOTINE POLACRILEX 2 MG GUM BUC PRN ×5 (06:11→21:12)
[2021-01-09] MEDS: NICOTINE 21 MG/24 HOURS TOPICAL PATCH TD SCH (09:52)
[2021-01-09] MEDS: PRENATAL VITAMINS W/ FOLIC ACID TABLET (FP) PO SCH (09:52)
[2021-01-09] MEDS: PANTOPRAZOLE 40 MG TABLET PO SCH (09:52)
[2021-01-09] MEDS: IBUPROFEN 400 MG TABLET (FP) PO PRN (09:54)
[2021-01-09] MEDS: cloNIDine HCL 0.1 MG TABLET PO PRN (12:19)
[2021-01-09] MEDS: LOPERAMIDE HCL 2 MG CAPSULE PO PRN (12:58)
[2021-01-09] MEDS: QUEtiapine FUMARATE 100 MG TABLET (FP) PO SCH (21:11)
[2021-01-09] MEDS: MELATONIN 5 MG TABLETS PO SCH (21:11)
[2021-01-09] MEDS: THIAMINE HCL 100 MG TABLET (FP) PO SCH (21:11)
[2021-01-09] MEDS: MAG HYDROX/AL HYDROX/SIMETH 30 ML UNIT-DOSE CUP PO PRN (21:47)
[2021-01-10] MEDS: NYSTATIN 500,000 UNITS/5 ML SUSPENSION PO SCH ×5 (00:27→23:05)
[2021-01-10] MEDS: METHOCARBAMOL 500 MG TABLET PO PRN (06:41)
[2021-01-10] MEDS: GABAPENTIN 400 MG CAPSULE PO SCH ×3 (06:41→21:10)
[2021-01-10] MEDS: NICOTINE POLACRILEX 2 MG GUM BUC PRN ×5 (06:41→21:11)
[2021-01-10] MEDS: cloNIDine HCL 0.1 MG TABLET PO PRN ×2 (06:41→21:10)
[2021-01-10] MEDS: hydrOXYzine PAMOATE 50 MG CAPSULE (FP) PO SCH ×5 (06:42→21:11)
[2021-01-10] MEDS: PANTOPRAZOLE 40 MG TABLET PO SCH (09:41)
[2021-01-10] MEDS: PRENATAL VITAMINS W/ FOLIC ACID TABLET (FP) PO SCH (09:41)
[2021-01-10] MEDS: NICOTINE 21 MG/24 HOURS TOPICAL PATCH TD SCH (09:42)
[2021-01-10] MEDS: LOPERAMIDE HCL 2 MG CAPSULE PO PRN (13:55)
[2021-01-10] MEDS: IBUPROFEN 400 MG TABLET (FP) PO PRN (17:38)
[2021-01-10] MEDS: MELATONIN 5 MG TABLETS PO SCH (21:10)
[2021-01-10] MEDS: QUEtiapine FUMARATE 100 MG TABLET (FP) PO SCH (21:10)
[2021-01-10] MEDS: THIAMINE HCL 100 MG TABLET (FP) PO SCH (21:11)
[2021-01-11] MEDS: GABAPENTIN 400 MG CAPSULE PO SCH ×3 (06:13→21:41)
[2021-01-11] MEDS: METHOCARBAMOL 500 MG TABLET PO PRN (06:13)
[2021-01-11] MEDS: NYSTATIN 500,000 UNITS/5 ML SUSPENSION PO SCH ×4 (06:13→23:04)
[2021-01-11] MEDS: hydrOXYzine PAMOATE 50 MG CAPSULE (FP) PO SCH ×5 (06:13→21:41)
[2021-01-11] MEDS: NICOTINE POLACRILEX 2 MG GUM BUC PRN ×2 (06:13→09:47)
[2021-01-11] MEDS: PRENATAL VITAMINS W/ FOLIC ACID TABLET (FP) PO SCH (09:42)
[2021-01-11] MEDS: PANTOPRAZOLE 40 MG TABLET PO SCH (09:45)
[2021-01-11] MEDS: cloNIDine HCL 0.1 MG TABLET PO PRN ×2 (09:45→21:43)
[2021-01-11] MEDS: NICOTINE 21 MG/24 HOURS TOPICAL PATCH TD SCH (09:45)
[2021-01-11] MEDS: IBUPROFEN 400 MG TABLET (FP) PO PRN (17:36)
[2021-01-11] MEDS: LOPERAMIDE HCL 2 MG CAPSULE PO PRN (19:29)
[2021-01-11] MEDS: QUEtiapine FUMARATE 100 MG TABLET (FP) PO SCH (21:41)
[2021-01-11] MEDS: THIAMINE HCL 100 MG TABLET (FP) PO SCH (21:41)
[2021-01-11] MEDS: MELATONIN 5 MG TABLETS PO SCH (21:41)
[2021-01-12] MEDS: hydrOXYzine PAMOATE 50 MG CAPSULE (FP) PO SCH ×5 (06:43→21:22)
[2021-01-12] MEDS: GABAPENTIN 400 MG CAPSULE PO SCH ×3 (06:43→21:22)
[2021-01-12] MEDS: NYSTATIN 500,000 UNITS/5 ML SUSPENSION PO SCH ×3 (06:43→18:10)
[2021-01-12] MEDS: NICOTINE POLACRILEX 2 MG GUM BUC PRN ×4 (06:43→21:25)
[2021-01-12] MEDS: METHOCARBAMOL 500 MG TABLET PO PRN ×2 (06:43→21:23)
[2021-01-12] MEDS: cloNIDine HCL 0.1 MG TABLET PO PRN ×2 (09:31→21:24)
[2021-01-12] MEDS: NICOTINE 21 MG/24 HOURS TOPICAL PATCH TD SCH (09:31)
[2021-01-12] MEDS: PANTOPRAZOLE 40 MG TABLET PO SCH (09:31)
[2021-01-12] MEDS: PRENATAL VITAMINS W/ FOLIC ACID TABLET (FP) PO SCH (09:31)
[2021-01-12] MEDS: IBUPROFEN 400 MG TABLET (FP) PO PRN (09:34)
[2021-01-12] MEDS: NALTREXONE HCL 50 MG TABLET PO SCH (15:19)
[2021-01-12] MEDS: hydrOXYzine PAMOATE 25 MG CAPSULE (FP) PO SCH (21:22)
[2021-01-12] MEDS: QUEtiapine FUMARATE 100 MG TABLET (FP) PO SCH (21:23)
[2021-01-12] MEDS: MELATONIN 5 MG TABLETS PO SCH (21:24)
[2021-01-12] MEDS: THIAMINE HCL 100 MG TABLET (FP) PO SCH (22:17)
[2021-01-13] MEDS: NYSTATIN 500,000 UNITS/5 ML SUSPENSION PO SCH ×4 (01:44→17:49)
[2021-01-13] MEDS: METHOCARBAMOL 500 MG TABLET PO PRN ×2 (06:09→13:59)
[2021-01-13] MEDS: GABAPENTIN 400 MG CAPSULE PO SCH ×3 (06:09→21:57)
[2021-01-13] MEDS: hydrOXYzine PAMOATE 50 MG CAPSULE (FP) PO SCH ×5 (06:09→22:03)
[2021-01-13] MEDS: LOPERAMIDE HCL 2 MG CAPSULE PO PRN ×2 (06:30→17:49)
[2021-01-13] MEDS: NICOTINE 21 MG/24 HOURS TOPICAL PATCH TD SCH (10:09)
[2021-01-13] MEDS: PRENATAL VITAMINS W/ FOLIC ACID TABLET (FP) PO SCH (10:09)
[2021-01-13] MEDS: PANTOPRAZOLE 40 MG TABLET PO SCH (10:09)
[2021-01-13] MEDS: NALTREXONE HCL 50 MG TABLET PO SCH (10:10)
[2021-01-13] MEDS: IBUPROFEN 400 MG TABLET (FP) PO PRN ×2 (10:10→17:49)
[2021-01-13] MEDS: NICOTINE POLACRILEX 2 MG GUM BUC PRN ×2 (10:13→17:49)
[2021-01-13] MEDS: ACETAMINOPHEN 325 MG TABLET (FP) PO PRN (13:59)
[2021-01-13 21:03] VITALS: PULSE 97
[2021-01-13] MEDS: cloNIDine HCL 0.1 MG TABLET PO PRN (22:00)
[2021-01-13] MEDS: MELATONIN 5 MG TABLETS PO SCH (22:01)
[2021-01-13] MEDS: QUEtiapine FUMARATE 100 MG TABLET (FP) PO SCH (22:02)
[2021-01-13] MEDS: THIAMINE HCL 100 MG TABLET (FP) PO SCH (22:03)
[2021-01-14] MEDS: NYSTATIN 500,000 UNITS/5 ML SUSPENSION PO SCH ×2 (00:19→06:22)
[2021-01-14] MEDS: MAG HYDROX/AL HYDROX/SIMETH 30 ML UNIT-DOSE CUP PO PRN (04:39)
[2021-01-14] MEDS: hydrOXYzine PAMOATE 50 MG CAPSULE (FP) PO SCH (06:23)
[2021-01-14] MEDS: NICOTINE POLACRILEX 2 MG GUM BUC PRN (06:23)
[2021-01-14] MEDS: IBUPROFEN 400 MG TABLET (FP) PO PRN (06:23)
[2021-01-14] MEDS: GABAPENTIN 400 MG CAPSULE PO SCH (06:23)
[2021-01-14] MEDS: METHOCARBAMOL 500 MG TABLET PO PRN (06:24)
[2021-01-14] MEDS: cloNIDine HCL 0.1 MG TABLET PO PRN (06:50)
[2021-01-14 07:42] VITALS: BP 131/77; TEMP 96.9
== END 2021-01-14 08:55 | disposition home or self-care (01) | DRG 772 ==
LOC: YASAS 18:30 → Y5N 18:31
PROVIDERS: ADMIT Allergy & Immunology; ATTEND Allergy & Immunology
PROC: HZ42ZZZ Group Counseling for Substance Abuse Treatment, Cognitive-Behavioral (ICD-10-PCS; principal; 2021-01-05)
DX: F11.20 Opioid dependence, uncomplicated (principal); F10.20 Alcohol dependence, uncomplicated; F14.20 Cocaine dependence, uncomplicated; F13.20 Sedative, hypnotic or anxiolytic dependence, uncomplicated; F12.20 Cannabis dependence, uncomplicated; F17.210 Nicotine dependence, cigarettes, uncomplicated; F19.280 Other psychoactive substance dependence with psychoactive substance-induced anxiety disorder; F19.282 Other psychoactive substance dependence with psychoactive substance-induced sleep disorder; F19.24 Other psychoactive substance dependence with psychoactive substance-induced mood disorder; F41.1 Generalized anxiety disorder; F32.9 Major depressive disorder, single episode, unspecified; I10 Essential (primary) hypertension; R07.89 Other chest pain; R56.9 Unspecified convulsions; Z86.16 Personal history of COVID-19
CPT/HCPCS: J0735

== ENCOUNTER 2023-06-09 12:00 | Inpatient (IN) | payer OTHER ==
[2023-06-09 12:23] VITALS: BMI 24.9
[2023-06-09] MEDS ORDERED: LOPERAMIDE HCL 2 MG CAPSULE PO PRN (13:39)
[2023-06-09] MEDS ORDERED: DICYCLOMINE HCL 10 MG CAPSULE PO PRN (13:39)
[2023-06-09] MEDS ORDERED: BENZONATATE 200 MG CAPSULE PO PRN (13:39)
[2023-06-09] MEDS ORDERED: MAG HYDROX/AL HYDROX/SIMETH 30 ML UNIT-DOSE CUP PO PRN (13:39)
[2023-06-09] MEDS ORDERED: ACETAMINOPHEN 325 MG TABLET (FP) PO PRN (13:39)
[2023-06-09] MEDS ORDERED: IBUPROFEN 600 MG TABLET (FP) PO PRN (13:39)
[2023-06-09] MEDS ORDERED: BENZOCAINE/MENTHOL (CHLORASEPTIC ) LOZENGE MM PRN (13:39)
[2023-06-09] MEDS ORDERED: ONDANSETRON *ODT* 4 MG TABLET SL PRN (13:39)
[2023-06-09] MEDS ORDERED: guaiFENesin 600 MG TABLET.ER (FP) PO PRN (13:39)
[2023-06-09] MEDS ORDERED: NALOXONE HCL (KLOXXADO) 8 MG SPRAY NS PRN (13:39)
[2023-06-09] MEDS ORDERED: hydrOXYzine PAMOATE 25 MG CAPSULE (FP) PO PRN (13:39)
[2023-06-09] MEDS ORDERED: MAGNESIUM HYDROX 2400MG/30ML ORAL SUSPENSION 30 ML CUP PO PRN (13:39)
[2023-06-09] MEDS ORDERED: IBUPROFEN 400 MG TABLET (FP) PO PRN (13:39)
[2023-06-09] MEDS ORDERED: POLYETHYLENE GLYCOL (HEALTHYLAX) 3350 17 GM PACKET PO PRN (13:39)
[2023-06-09] MEDS ORDERED: NALOXONE HCL 0.4 MG/ML VIAL IM PRN (13:39)
[2023-06-09] MEDS ORDERED: BISMUTH SUBSALICYLATE 524 MG/30 ML PO PRN (13:39)
[2023-06-09] MEDS ORDERED: diazePAM 5 MG TABLET ONE (14:00)
[2023-06-09] MEDS ORDERED: NICOTINE 14 MG/24 HOURS TOPICAL PATCH TD ONE (14:00)
[2023-06-09] MEDS ORDERED: PRENATAL VITAMINS W/ FOLIC ACID TABLET (FP) PO ONE (14:00)
[2023-06-09] MEDS ORDERED: diazePAM 5 MG TABLET PO ONE (14:00)
[2023-06-09] MEDS: NICOTINE 14 MG/24 HOURS TOPICAL PATCH TD SCH (14:04)
[2023-06-09] MEDS: PRENATAL VITAMINS W/ FOLIC ACID TABLET (FP) PO SCH (14:04)
[2023-06-09] MEDS ORDERED: NALTREXONE HCL 50 MG TABLET PO SCH (15:15)
[2023-06-09] MEDS: diazePAM 5 MG TABLET PO SCH ×2 (17:29→22:00)
[2023-06-09] MEDS: GABAPENTIN 400 MG CAPSULE PO SCH (21:59)
[2023-06-09] MEDS: THIAMINE HCL 100 MG TABLET (FP) PO SCH (21:59)
[2023-06-09] MEDS ORDERED: MELATONIN 5 MG TABLETS PO SCH (22:00)
[2023-06-10] MEDS: methaDONE 40 MG, methaDONE 20 MG PO SCH (05:20)
[2023-06-10] MEDS: diazePAM 5 MG TABLET PO SCH ×4 (05:21→22:26)
[2023-06-10] MEDS: GABAPENTIN 400 MG CAPSULE PO SCH ×3 (05:21→22:25)
[2023-06-10] MEDS ORDERED: methaDONE HCL 10 MG TABLET PO SCH (06:00)
[2023-06-10 08:50] LABS: CHLORIDE 104 mmol/L (98-107); POTASSIUM 4.1 mmol/L (3.5-5.1); SODIUM 138 mmol/L (136-145)
[2023-06-10 08:53] LABS: ALBUMIN 3.3 g/dl (3.4-5.0); ANION GAP 2 mmol/L (4-13); BLOOD UREA NITROGEN 18.5 mg/dL (7-18); CALCIUM 8.4 mg/dL (8.5-10.1); CO2 31 mmol/L (21-32); GLUCOSE,RANDOM 94 mg/dL (74-106)
[2023-06-10 08:54] LABS: HEMATOCRIT 43.8 % (35.4-49); HEMOGLOBIN 14.2 GM/dL (11.7-16.9); MCH 27.7 pg (25.7-33.7); MCHC 32.4 g/dl (32.0-35.9); MEAN CELL VOLUME 85.5 fl (80-96); MEAN PLT VOLUME 7.6 fl (7.5-11.1); PLATELET COUNT 227 10^3/uL (134-434); RBC 5.12 M/mm3 (4.00-5.60); RDW 13.9 % (11.9-15.9); WHITE BLOOD COUNT 3.9 K/mm3 (4.0-10.0)
[2023-06-10 08:56] LABS: CREATININE 0.9 mg/dL (0.55-1.3); SGOT/AST 11 U/L (15-37); SGPT/ALT 18 U/L (13-61)
[2023-06-10 08:58] LABS: BILIRUBIN,TOTAL 0.3 mg/dL (0.2-1); TOT PROT 6.1 g/dl (6.4-8.2)
[2023-06-10 08:59] LABS: ALK PHOS 44 U/L (45-117)
[2023-06-10] MEDS: NICOTINE 14 MG/24 HOURS TOPICAL PATCH TD SCH (10:10)
[2023-06-10] MEDS: PANTOPRAZOLE 20 MG TABLET PO SCH (10:10)
[2023-06-10] MEDS: PRENATAL VITAMINS W/ FOLIC ACID TABLET (FP) PO SCH (10:10)
[2023-06-10] MEDS: cloNIDine HCL 0.1 MG TABLET PO SCH (10:10)
[2023-06-10] MEDS: QUEtiapine FUMARATE 100 MG TABLET (FP) PO SCH ×2 (13:42→22:25)
[2023-06-10] MEDS: THIAMINE HCL 100 MG TABLET (FP) PO SCH (22:25)
[2023-06-11] MEDS: methaDONE 40 MG, methaDONE 20 MG PO SCH (05:18)
[2023-06-11] MEDS: GABAPENTIN 400 MG CAPSULE PO SCH ×3 (05:18→22:16)
[2023-06-11] MEDS: diazePAM 5 MG TABLET PO SCH ×3 (05:19→22:16)
[2023-06-11] MEDS: QUEtiapine FUMARATE 100 MG TABLET (FP) PO SCH ×2 (10:06→22:16)
[2023-06-11] MEDS: PRENATAL VITAMINS W/ FOLIC ACID TABLET (FP) PO SCH (10:06)
[2023-06-11] MEDS: PANTOPRAZOLE 20 MG TABLET PO SCH (10:06)
[2023-06-11] MEDS: diazePAM 5 MG TABLET PO PRN (10:06)
[2023-06-11] MEDS: METHOCARBAMOL 500 MG TABLET PO PRN (10:06)
[2023-06-11] MEDS: NICOTINE 14 MG/24 HOURS TOPICAL PATCH TD SCH (10:06)
[2023-06-11] MEDS: cloNIDine HCL 0.1 MG TABLET PO SCH (10:06)
[2023-06-11] MEDS: THIAMINE HCL 100 MG TABLET (FP) PO SCH (22:16)
[2023-06-12] MEDS: methaDONE 40 MG, methaDONE 20 MG PO SCH (05:14)
[2023-06-12] MEDS: diazePAM 5 MG TABLET PO SCH ×2 (05:15→17:18)
[2023-06-12] MEDS: GABAPENTIN 400 MG CAPSULE PO SCH ×3 (05:15→22:09)
[2023-06-12] MEDS: NICOTINE 14 MG/24 HOURS TOPICAL PATCH TD SCH (10:09)
[2023-06-12] MEDS: cloNIDine HCL 0.1 MG TABLET PO SCH (10:10)
[2023-06-12] MEDS: PANTOPRAZOLE 20 MG TABLET PO SCH (10:10)
[2023-06-12] MEDS: PRENATAL VITAMINS W/ FOLIC ACID TABLET (FP) PO SCH (10:10)
[2023-06-12] MEDS: QUEtiapine FUMARATE 100 MG TABLET (FP) PO SCH ×2 (10:10→22:09)
[2023-06-12] MEDS: METHOCARBAMOL 500 MG TABLET PO PRN ×2 (10:10→17:18)
[2023-06-12] MEDS: diazePAM 5 MG TABLET PO PRN (10:11)
[2023-06-12] MEDS: THIAMINE HCL 100 MG TABLET (FP) PO SCH (22:09)
[2023-06-13] MEDS: GABAPENTIN 400 MG CAPSULE PO SCH (05:53)
[2023-06-13] MEDS: methaDONE 40 MG, methaDONE 20 MG PO SCH (05:53)
[2023-06-13] MEDS ORDERED: diazePAM 5 MG TABLET PO ONE (06:00)
[2023-06-13 06:16] VITALS: RESP 16
[2023-06-13 09:07] VITALS: BP 146/74; PULSE 84; TEMP 98.4
[2023-06-13] MEDS: NICOTINE 14 MG/24 HOURS TOPICAL PATCH TD SCH (09:24)
[2023-06-13] MEDS: PRENATAL VITAMINS W/ FOLIC ACID TABLET (FP) PO SCH (09:24)
[2023-06-13] MEDS: cloNIDine HCL 0.1 MG TABLET PO SCH (09:24)
[2023-06-13] MEDS: QUEtiapine FUMARATE 100 MG TABLET (FP) PO SCH (09:24)
[2023-06-13] MEDS: PANTOPRAZOLE 20 MG TABLET PO SCH (09:24)
== END 2023-06-13 09:30 | disposition home or self-care (01) | DRG 773 ==
LOC: YASAS 12:00 → Y6N 14:18
PROVIDERS: ADMIT Allergy & Immunology; ATTEND Surgery
PROC: HZ2ZZZZ Detoxification Services for Substance Abuse Treatment (ICD-10-PCS; principal; 2023-06-09)
DX: F10.230 Alcohol dependence with withdrawal, uncomplicated (principal); F13.230 Sedative, hypnotic or anxiolytic dependence with withdrawal, uncomplicated; F11.20 Opioid dependence, uncomplicated; F12.20 Cannabis dependence, uncomplicated; F17.210 Nicotine dependence, cigarettes, uncomplicated; F19.280 Other psychoactive substance dependence with psychoactive substance-induced anxiety disorder; F19.24 Other psychoactive substance dependence with psychoactive substance-induced mood disorder; F41.1 Generalized anxiety disorder; Z62.810 Personal history of physical and sexual abuse in childhood; Z28.310 Unvaccinated for COVID-19; Z28.9 Immunization not carried out for unspecified reason; Z88.1 Allergy status to other antibiotic agents
CPT/HCPCS: 36415; 80053; 80307; 85027; 86780; 87635; 87811

== ENCOUNTER 2024-04-13 16:39 | Inpatient (IN) | payer OTHER ==
[2024-04-13 18:05] VITALS: BMI 28.1
[2024-04-13] MEDS ORDERED: BENZONATATE 200 MG CAPSULE PO PRN (19:21)
[2024-04-13] MEDS ORDERED: NALOXONE HCL 0.4 MG/ML VIAL IM PRN (19:21)
[2024-04-13] MEDS ORDERED: MAG HYDROX/AL HYDROX/SIMETH 30 ML UNIT-DOSE CUP PO PRN (19:21)
[2024-04-13] MEDS ORDERED: LOPERAMIDE HCL 2 MG CAPSULE PO PRN (19:21)
[2024-04-13] MEDS ORDERED: POLYETHYLENE GLYCOL (HEALTHYLAX) 3350 17 GM PACKET PO PRN (19:21)
[2024-04-13] MEDS ORDERED: ACETAMINOPHEN 325 MG TABLET (FP) PO PRN (19:21)
[2024-04-13] MEDS ORDERED: guaiFENesin 600 MG TABLET.ER (FP) PO PRN (19:21)
[2024-04-13] MEDS ORDERED: ONDANSETRON *ODT* 4 MG TABLET SL PRN (19:21)
[2024-04-13] MEDS ORDERED: IBUPROFEN 400 MG TABLET (FP) PO PRN (19:21)
[2024-04-13] MEDS ORDERED: NICOTINE POLACRILEX 2 MG GUM BUC PRN (19:21)
[2024-04-13] MEDS ORDERED: MAGNESIUM HYDROX 2400MG/30ML ORAL SUSPENSION 30 ML CUP PO PRN (19:21)
[2024-04-13] MEDS ORDERED: NICOTINE POLACRILEX 2 MG LOZENGE BC PRN (19:21)
[2024-04-13] MEDS ORDERED: BENZOCAINE/MENTHOL (CHLORASEPTIC ) LOZENGE MM PRN (19:21)
[2024-04-13] MEDS ORDERED: DICYCLOMINE HCL 10 MG CAPSULE PO PRN (19:21)
[2024-04-13] MEDS ORDERED: NALOXONE (NARCAN) HCL 4 MG/0.1 ML SPRAY NS PRN (19:21)
[2024-04-13] MEDS ORDERED: BISMUTH SUBSALICYLATE 524 MG/30 ML PO PRN (19:21)
[2024-04-13] MEDS: THIAMINE 100 MG TABLET PO SCH (22:26)
[2024-04-13 23:54] VITALS: RESP 18
[2024-04-14] MEDS: methaDONE 80 MG, methaDONE 20 MG PO SCH (09:54)
[2024-04-14] MEDS: PRENATAL VITAMINS W/ FOLIC ACID TABLET (FP) PO SCH (09:54)
[2024-04-14 10:23] LABS: HEMATOCRIT 43.7 % (35.4-49); HEMOGLOBIN 14.1 GM/dL (11.7-16.9); MCH 28.1 pg (25.7-33.7); MCHC 32.2 g/dl (32.0-35.9); MEAN CELL VOLUME 87.3 fl (80-96); MEAN PLT VOLUME 7.1 fl (7.5-11.1); PLATELET COUNT 268 10^3/uL (134-434); RDW 13.6 % (11.9-15.9)
[2024-04-14 10:25] LABS: CHLORIDE 105 mmol/L (98-107); POTASSIUM 4.6 mmol/L (3.5-5.1); SODIUM 140 mmol/L (136-145)
[2024-04-14 10:39] LABS: ALBUMIN 3.6 g/dl (3.4-5.0); ANION GAP 6 mmol/L (4-13); BLOOD UREA NITROGEN 14.1 mg/dL (7-18); CALCIUM 9.2 mg/dL (8.5-10.1); CO2 29 mmol/L (21-32); GLUCOSE,RANDOM 106 mg/dL (74-106)
[2024-04-14 10:42] LABS: SGOT/AST 17 U/L (15-37); SGPT/ALT 21 U/L (13-61)
[2024-04-14 10:43] LABS: BILIRUBIN,TOTAL 0.4 mg/dL (0.2-1)
[2024-04-14 10:44] LABS: TOT PROT 6.5 g/dl (6.4-8.2)
[2024-04-14 10:45] LABS: ALK PHOS 53 U/L (45-117)
[2024-04-14] MEDS: methaDONE HCL 10 MG TABLET PO SCH (11:46)
[2024-04-14] MEDS: METHOCARBAMOL 500 MG TABLET PO PRN (21:31)
[2024-04-15 06:56] VITALS: PULSE 62
[2024-04-15] MEDS: IBUPROFEN 600 MG TABLET (FP) PO PRN (21:46)
[2024-04-16 07:09] VITALS: BP 130/84; TEMP 97.3
== END 2024-04-16 10:15 | disposition home or self-care (01) | DRG 772 ==
LOC: YASAS 16:39 → Y5N 23:35
PROVIDERS: ADMIT Allergy & Immunology; ATTEND Psychiatry & Neurology Pain Medicine
PROC: HZ42ZZZ Group Counseling for Substance Abuse Treatment, Cognitive-Behavioral (ICD-10-PCS; principal; 2024-04-13)
DX: F16.20 Hallucinogen dependence, uncomplicated (principal); F11.20 Opioid dependence, uncomplicated; F17.210 Nicotine dependence, cigarettes, uncomplicated; F31.9 Bipolar disorder, unspecified; F41.1 Generalized anxiety disorder; I10 Essential (primary) hypertension
CPT/HCPCS: 36415; 80053; 80305; 80307; 81003; 85027; 86480; 86780; 86803; 87522; 87811; 93005; 93010

== ENCOUNTER 2024-05-22 18:27 | Inpatient (IN) | payer OTHER ==
[2024-05-22 19:35] VITALS: BMI 26.7
[2024-05-22] MEDS ORDERED: MAG HYDROX/AL HYDROX/SIMETH 30 ML UNIT-DOSE CUP PO PRN (21:27)
[2024-05-22] MEDS ORDERED: IBUPROFEN 400 MG TABLET (FP) PO PRN (21:27)
[2024-05-22] MEDS ORDERED: BENZOCAINE/MENTHOL (CHLORASEPTIC ) LOZENGE MM PRN (21:27)
[2024-05-22] MEDS ORDERED: DICYCLOMINE HCL 10 MG CAPSULE PO PRN (21:27)
[2024-05-22] MEDS ORDERED: guaiFENesin 600 MG TABLET.ER (FP) PO PRN (21:27)
[2024-05-22] MEDS ORDERED: POLYETHYLENE GLYCOL (HEALTHYLAX) 3350 17 GM PACKET PO PRN (21:27)
[2024-05-22] MEDS ORDERED: BENZONATATE 200 MG CAPSULE PO PRN (21:27)
[2024-05-22] MEDS ORDERED: ACETAMINOPHEN 325 MG TABLET (FP) PO PRN (21:27)
[2024-05-22] MEDS ORDERED: NALOXONE (NARCAN) HCL 4 MG/0.1 ML SPRAY NS PRN (21:27)
[2024-05-22] MEDS ORDERED: NICOTINE POLACRILEX 2 MG LOZENGE BC PRN (21:27)
[2024-05-22] MEDS ORDERED: MAGNESIUM HYDROX 2400MG/30ML ORAL SUSPENSION 30 ML CUP PO PRN (21:27)
[2024-05-22] MEDS: hydrOXYzine PAMOATE 25 MG CAPSULE (FP) PO PRN (22:34)
[2024-05-22] MEDS: METHOCARBAMOL 500 MG TABLET PO PRN (22:34)
[2024-05-22] MEDS: MELATONIN 5 MG TABLETS PO SCH (22:34)
[2024-05-22] MEDS: THIAMINE 100 MG TABLET PO SCH (22:34)
[2024-05-23] MEDS: methaDONE HCL 10 MG TABLET PO ONE ×2 (08:52→09:25)
[2024-05-23] MEDS: PRENATAL VITAMINS W/ FOLIC ACID TABLET (FP) PO SCH (09:30)
[2024-05-23] MEDS: QUEtiapine FUMARATE 100 MG TABLET (FP) PO SCH (09:30)
[2024-05-23] MEDS ORDERED: NALTREXONE HCL 50 MG TABLET PO SCH (10:00)
[2024-05-23 13:25] LABS: HEMATOCRIT 39.5 % (35.4-49); HEMOGLOBIN 13.4 GM/dL (11.7-16.9); MCH 28.4 pg (25.7-33.7); MCHC 33.9 g/dl (32.0-35.9); MEAN CELL VOLUME 83.7 fl (80-96); MEAN PLT VOLUME 6.9 fl (7.5-11.1); PLATELET COUNT 231 10^3/uL (134-434); RBC 4.72 M/mm3 (4.00-5.60); RDW 13.4 % (11.9-15.9); WHITE BLOOD COUNT 4.5 K/mm3 (4.0-10.0)
[2024-05-23 13:56] LABS: CHLORIDE 102 mmol/L (98-107); POTASSIUM 3.9 mmol/L (3.5-5.1); SODIUM 138 mmol/L (136-145)
[2024-05-23 14:00] LABS: BLOOD UREA NITROGEN 13.9 mg/dL (7-18); CALCIUM 8.8 mg/dL (8.5-10.1)
[2024-05-23 14:03] LABS: ALBUMIN 3.6 g/dl (3.4-5.0); ANION GAP 6 mmol/L (4-13); CO2 31 mmol/L (21-32)
[2024-05-23 14:04] LABS: SGPT/ALT 35 U/L (13-61)
[2024-05-23 14:05] LABS: ALK PHOS 61 U/L (45-117); GLUCOSE,RANDOM 131 mg/dL (74-106)
[2024-05-23 14:06] LABS: SGOT/AST 35 U/L (15-37)
[2024-05-23 14:08] LABS: BILIRUBIN,TOTAL 0.4 mg/dL (0.2-1); TOT PROT 6.4 g/dl (6.4-8.2)
[2024-05-23 14:09] LABS: CREATININE 0.9 mg/dL (0.55-1.3)
[2024-05-23] MEDS: IBUPROFEN 600 MG TABLET (FP) PO PRN (17:07)
[2024-05-23] MEDS: QUEtiapine FUMARATE 200 MG TABLET PO SCH (22:08)
[2024-05-24] MEDS ORDERED: methaDONE HCL 10 MG TABLET PO SCH ×2 (06:00)
[2024-05-24] MEDS: NALOXONE (NYS OPIOID OVERDOSE PROGRAM) 4 MG/0.1 ML SPRAY NS PRN (08:50)
[2024-05-24] MEDS ORDERED: chlordiazePOXIDE HCL 25 MG CAPSULE PO PRN (09:14)
[2024-05-24] MEDS: chlordiazePOXIDE HCL 25 MG CAPSULE PO SCH (10:10)
[2024-05-24] MEDS: diazePAM 5 MG TABLET PO PRN (13:24)
[2024-05-24] MEDS: NICOTINE POLACRILEX 2 MG GUM BUC PRN (13:25)
[2024-05-24] MEDS: diazePAM 5 MG TABLET PO SCH (17:38)
[2024-05-25] MEDS: NICOTINE 14 MG/24 HOURS TOPICAL PATCH TD SCH (10:31)
[2024-05-25] MEDS: QUEtiapine FUMARATE 100 MG TABLET (FP) PO SCH (13:19)
[2024-05-25] MEDS: ONDANSETRON *ODT* 4 MG TABLET SL PRN (22:42)
[2024-05-26] MEDS ORDERED: chlordiazePOXIDE HCL 25 MG CAPSULE PO SCH (05:00)
[2024-05-26] MEDS: diazePAM 5 MG TABLET PO SCH (05:27)
[2024-05-26] MEDS: LOPERAMIDE HCL 2 MG CAPSULE PO PRN (09:25)
[2024-05-26] MEDS: BISMUTH SUBSALICYLATE 524 MG/30 ML PO PRN (10:34)
[2024-05-27] MEDS ORDERED: chlordiazePOXIDE HCL 10 MG CAPSULE PO PRN
[2024-05-27] MEDS ORDERED: chlordiazePOXIDE HCL 10 MG CAPSULE PO SCH (05:00)
[2024-05-27] MEDS: diazePAM 5 MG TABLET PO SCH (05:05)
[2024-05-27] MEDS: DIPHENOXYLATE 2.5/ATROPINE.025 1 COMBO TABLET PO PRN (09:26)
[2024-05-27] MEDS: FAMOTIDINE 20 MG TABLET PO SCH (11:24)
[2024-05-28] MEDS ORDERED: chlordiazePOXIDE HCL 10 MG CAPSULE PO SCH (05:00)
[2024-05-28] MEDS: diazePAM 5 MG TABLET PO ONE (06:01)
[2024-05-28 09:40] VITALS: BP 109/63; PULSE 56; RESP 18; TEMP 96.8
[2024-05-29] MEDS ORDERED: chlordiazePOXIDE HCL 10 MG CAPSULE PO ONE (05:00)
== END 2024-05-28 10:20 | DRG 774 ==
LOC: YASAS 18:27 → Y6N 21:46
PROVIDERS: ADMIT Allergy & Immunology; ATTEND Surgery
PROC: HZ2ZZZZ Detoxification Services for Substance Abuse Treatment (ICD-10-PCS; principal; 2024-05-22)
DX: F10.230 Alcohol dependence with withdrawal, uncomplicated (principal); F14.20 Cocaine dependence, uncomplicated; F16.20 Hallucinogen dependence, uncomplicated; F12.20 Cannabis dependence, uncomplicated; F17.213 Nicotine dependence, cigarettes, with withdrawal; F19.282 Other psychoactive substance dependence with psychoactive substance-induced sleep disorder; F41.8 Other specified anxiety disorders; I10 Essential (primary) hypertension; K21.9 Gastro-esophageal reflux disease without esophagitis; Z62.810 Personal history of physical and sexual abuse in childhood; Z63.8 Other specified problems related to primary support group; Z88.8 Allergy status to other drugs, medicaments and biological substances
CPT/HCPCS: 36415; 80053; 80305; 80307; 85027; 87811; Q0162

== ENCOUNTER 2024-05-28 12:25 | Inpatient (IN) | payer OTHER ==
[~2024-05-28 12:25] MED LIST: BENZOCAINE/MENTHOL (CHLORASEPTIC ) LOZENGE MM PRN; BENZONATATE 200 MG CAPSULE PO PRN; LOPERAMIDE HCL 2 MG CAPSULE PO PRN; MAG HYDROX/AL HYDROX/SIMETH 30 ML UNIT-DOSE CUP PO PRN; MAGNESIUM HYDROX 2400MG/30ML ORAL SUSPENSION 30 ML CUP PO PRN; NALOXONE (NARCAN) HCL 4 MG/0.1 ML SPRAY NS PRN; POLYETHYLENE GLYCOL (HEALTHYLAX) 3350 17 GM PACKET PO PRN; guaiFENesin 600 MG TABLET.ER (FP) PO PRN
[2024-05-28] MEDS: QUEtiapine FUMARATE 100 MG TABLET (FP) PO SCH (13:42)
[2024-05-28] MEDS: FAMOTIDINE 20 MG TABLET PO SCH (15:58)
[2024-05-28] MEDS: NICOTINE POLACRILEX 2 MG GUM BUC PRN (15:58)
[2024-05-28] MEDS: THIAMINE 100 MG TABLET PO SCH (21:58)
[2024-05-28] MEDS: MELATONIN 5 MG TABLETS PO SCH (21:58)
[2024-05-29] MEDS ORDERED: methaDONE HCL 40 MG DISPERSABLE TABLET PO SCH (06:00)
[2024-05-29] MEDS: NICOTINE 14 MG/24 HOURS TOPICAL PATCH TD SCH (09:31)
[2024-05-29] MEDS: PRENATAL VITAMINS W/ FOLIC ACID TABLET (FP) PO SCH (09:32)
[2024-05-29] MEDS: IBUPROFEN 600 MG TABLET (FP) PO PRN (09:33)
[2024-05-29] MEDS: hydrOXYzine PAMOATE 25 MG CAPSULE (FP) PO PRN (21:43)
[2024-05-30] MEDS: NALOXONE (NYS OPIOID OVERDOSE PROGRAM) 4 MG/0.1 ML SPRAY NS PRN (08:48)
[2024-05-31] MEDS: IBUPROFEN 400 MG TABLET (FP) PO PRN (06:57)
[2024-05-31] MEDS: TOLNAFTATE 1% CREAM 15 GM TUBE TP SCH (12:32)
[2024-05-31] MEDS: QUEtiapine FUMARATE 200 MG TABLET PO SCH (21:46)
[2024-06-01] MEDS: QUEtiapine FUMARATE 100 MG TABLET (FP) PO SCH (06:20)
[2024-06-01] MEDS: BACLOFEN 10 MG TABLET (FP) PO SCH (14:41)
[2024-06-01] MEDS: GABAPENTIN 300 MG CAPSULE PO SCH (14:41)
[2024-06-01] MEDS: SODIUM CHLORIDE NASAL SPRAY 44 ML BOTTLE NS PRN (22:08)
[2024-06-02] MEDS ORDERED: methaDONE HCL 40 MG DISPERSABLE TABLET PO SCH (06:00)
[2024-06-02] MEDS: methaDONE 80 MG, methaDONE 20 MG PO SCH (06:45)
[2024-06-02] MEDS: OXYMETAZOLINE 0.05% NASAL SOLUTION 15 ML BOTTLE NS PRN (22:54)
[2024-06-03] MEDS: NICOTINE POLACRILEX 2 MG LOZENGE BC PRN (06:16)
[2024-06-04] MEDS: ACETAMINOPHEN 325 MG TABLET (FP) PO PRN (09:37)
[2024-06-04] MEDS: SUVOREXANT 10 MG TABLET PO PRN (21:13)
[2024-06-05 07:08] VITALS: BP 119/73; PULSE 60; RESP 17; TEMP 97.6
[2024-06-05] MEDS: NALOXONE (NYS OPIOID OVERDOSE PROGRAM) 4 MG/0.1 ML SPRAY NS SCH (10:03)
== END 2024-06-05 10:46 | disposition home or self-care (01) | DRG 772 ==
LOC: YASAS 12:25 → Y3NR 12:27 → Y3E 05-29 11:31
PROVIDERS: ADMIT Psychiatry & Neurology Pain Medicine; ATTEND Psychiatry & Neurology Pain Medicine
PROC: HZ42ZZZ Group Counseling for Substance Abuse Treatment, Cognitive-Behavioral (ICD-10-PCS; principal; 2024-05-28)
DX: F11.20 Opioid dependence, uncomplicated (principal); F10.20 Alcohol dependence, uncomplicated; F16.20 Hallucinogen dependence, uncomplicated; F15.20 Other stimulant dependence, uncomplicated; F31.9 Bipolar disorder, unspecified; F39 Unspecified mood [affective] disorder; F19.24 Other psychoactive substance dependence with psychoactive substance-induced mood disorder; M54.50 Low back pain, unspecified; G89.29 Other chronic pain
CPT/HCPCS: 80305; 93005; 93010; J0475

== ENCOUNTER 2025-03-20 11:36 | Inpatient (IN) | payer OTHER ==
[2025-03-20 12:07] VITALS: BMI 31.6
[2025-03-20] MEDS ORDERED: NICOTINE POLACRILEX 2 MG LOZENGE BC PRN (12:34)
[2025-03-20] MEDS ORDERED: LOPERAMIDE HCL 2 MG CAPSULE PO PRN (12:34)
[2025-03-20] MEDS ORDERED: BENZOCAINE/MENTHOL (CHLORASEPTIC ) LOZENGE MM PRN (12:34)
[2025-03-20] MEDS ORDERED: P-EPHED 60MG/TRIPROLIDI 2.5MG TABLET PO PRN (12:34)
[2025-03-20] MEDS ORDERED: ONDANSETRON *ODT* 4 MG TABLET SL PRN (12:34)
[2025-03-20] MEDS ORDERED: guaiFENesin 600 MG TABLET.ER (FP) PO PRN (12:34)
[2025-03-20] MEDS ORDERED: MAG HYDROX/AL HYDROX/SIMETH 30 ML UNIT-DOSE CUP PO PRN (12:34)
[2025-03-20] MEDS ORDERED: DICYCLOMINE HCL 10 MG CAPSULE PO PRN (12:34)
[2025-03-20] MEDS ORDERED: BISMUTH SUBSALICYLATE 524 MG/30 ML PO PRN (12:34)
[2025-03-20] MEDS ORDERED: BENZONATATE 200 MG CAPSULE PO PRN (12:34)
[2025-03-20] MEDS ORDERED: MAGNESIUM HYDROX 2400MG/30ML ORAL SUSPENSION 30 ML CUP PO PRN (12:34)
[2025-03-20] MEDS ORDERED: POLYETHYLENE GLYCOL (HEALTHYLAX) 3350 17 GM PACKET PO PRN (12:34)
[2025-03-20] MEDS ORDERED: hydrOXYzine PAMOATE 25 MG CAPSULE (FP) PO PRN (12:34)
[2025-03-20] MEDS ORDERED: NALOXONE (NARCAN) HCL 4 MG/0.1 ML SPRAY NS PRN (12:34)
[2025-03-20] MEDS ORDERED: ACETAMINOPHEN 325 MG TABLET (FP) PO PRN (12:34)
[2025-03-20] MEDS ORDERED: IBUPROFEN 400 MG TABLET (FP) PO PRN (12:34)
[2025-03-20] MEDS: NICOTINE POLACRILEX 2 MG GUM BUC PRN (17:24)
[2025-03-20] MEDS: MELATONIN 5 MG TABLETS PO SCH (22:25)
[2025-03-20] MEDS: THIAMINE 100 MG TABLET PO SCH (22:26)
[2025-03-20] MEDS: levETIRAcetam 500 MG TABLET (FP) PO SCH (22:26)
[2025-03-21] MEDS: METHOCARBAMOL 500 MG TABLET PO PRN (10:30)
[2025-03-21] MEDS: PRENATAL VITAMINS W/ FOLIC ACID TABLET (FP) PO SCH (10:30)
[2025-03-21 11:12] LABS: MCHC 31.5 g/dl (32.3-36.5); MEAN CELL VOLUME 87.8 fl (79.0-92.2); MEAN PLT VOLUME 8.8 fl (9.4-12.4); RDW 13.8 % (12.0-15.6)
[2025-03-21 11:57] LABS: GLUCOSE,RANDOM 101.0 mg/dL (74-106)
[2025-03-21] MEDS: QUEtiapine FUMARATE 100 MG TABLET (FP) PO SCH (11:57)
[2025-03-21 11:58] LABS: TOT PROT 6.5 g/dl (6.4-8.2)
[2025-03-21 11:59] LABS: CO2 27.0 mmol/L (21-32)
[2025-03-21 12:00] LABS: ALK PHOS 52.0 U/L (40-150)
[2025-03-21 12:03] LABS: CREATININE 0.99 mg/dL (0.55-1.3); SGOT/AST 24.0 U/L (5-34); SGPT/ALT 26.0 U/L (0-55)
[2025-03-22] MEDS: IBUPROFEN 600 MG TABLET (FP) PO PRN (05:52)
[2025-03-24 05:58] VITALS: PULSE 69; RESP 16; TEMP 98.7
[2025-03-24 10:10] VITALS: BP 123/72
== END 2025-03-24 11:02 | disposition other institution (70) | DRG 773 ==
LOC: YASAS 11:36 → Y3N 14:22
PROVIDERS: ADMIT Neuromusculoskeletal Medicine & OMM; ATTEND Allergy & Immunology
PROC: HZ2ZZZZ Detoxification Services for Substance Abuse Treatment (ICD-10-PCS; principal; 2025-03-20)
DX: F10.230 Alcohol dependence with withdrawal, uncomplicated (principal); F13.230 Sedative, hypnotic or anxiolytic dependence with withdrawal, uncomplicated; F16.20 Hallucinogen dependence, uncomplicated; F11.20 Opioid dependence, uncomplicated; F14.20 Cocaine dependence, uncomplicated; F17.210 Nicotine dependence, cigarettes, uncomplicated; F32.9 Major depressive disorder, single episode, unspecified; F41.9 Anxiety disorder, unspecified; I10 Essential (primary) hypertension; K21.9 Gastro-esophageal reflux disease without esophagitis; Z59.00 Homelessness unspecified
CPT/HCPCS: 36415; 80053; 80307; 85027